=== PATIENT | male | born 1955 ===

== ENCOUNTER 2017-06-21 08:12 | Day surgery (SDC) | payer OTHER ==
[2017-06-21] MEDS ORDERED: Lactated Ringer's 1,000 ML IV ONE (08:32)
[2017-06-21] MEDS ORDERED: Propofol 10 mg/ml Inj (20 ML) ONE (11:02)
[2017-06-21] MEDS ORDERED: Lidocaine 2% MPF (5 ml) Inj ONE (11:02)
[2017-06-21 11:36] VITALS: TEMP 96.7
[2017-06-21 11:53] VITALS: BP 100/60; PULSE 59; RESP 15; O2SAT 100
== END 2017-06-21 12:02 | disposition home or self-care (01) ==
LOC: H.ENDO 08:12
PROVIDERS: ATTEND Internal Medicine Gastroenterology
DX: Z12.11 Encounter for screening for malignant neoplasm of colon (principal); E78.5 Hyperlipidemia, unspecified; K57.30 Diverticulosis of large intestine without perforation or abscess without bleeding; K64.8 Other hemorrhoids
CPT/HCPCS: 45378; J2704; J7120